=== PATIENT | female | born 1930 | race Two or more races ===

== ENCOUNTER → 2017-06-16 | Outpatient (CLI) | payer OTHER | END | disposition home or self-care (01) | LOC: US 09:00 | PROC: B54DZZZ Ultrasonography of Bilateral Lower Extremity Veins (ICD-10-PCS; principal; 2017-06-16) | DX: M79.89 Other specified soft tissue disorders (principal) ==

== ENCOUNTER 2018-10-15 13:52 | Inpatient (IN) | payer OTHER ==
[~2018-10-15] VITALS: Ht 160 cm; Wt 66.5 kg
[2018-10-15 14:00] VITALS: Ht 160 cm; Wt 66.5 kg
[2018-10-15 15:05] LABS: BASOPHIL % 1.3 % (0-2); PLATELET COUNT 230 x10^3mcL (130-400); RED CELL DISTRIBUTION WIDTH 14.4 % (11.5-14.5)
[2018-10-15 15:16] LABS: CALCIUM 9.4 mg/dL (8.5-10.1); CARBON DIOXIDE 25.3 mmol/L (21-32); CHLORIDE SERUM 98 mmol/L (98-107); CREATININE SERUM 1.6 mg/dL (0.6-1.0); GLUCOSE SERUM 317 mg/dL (74-106); POTASSIUM SERUM 3.8 mmol/L (3.5-5.1); SODIUM SERUM 133 mmol/L (136-145)
[2018-10-15 15:27] LABS: ALKALINE PHOSPHATASE 86 U/L (46-116); ALT/SGPT 46 U/L (14-59); AMYLASE 81 U/L (25-115); AST/SGOT 38 U/L (15-37); BILIRUBIN TOTAL 0.4 mg/dL (0.20-1.00); CHOLESTEROL 194 mg/dL (<200); HDL CHOLESTEROL 38 mg/dL (40-60); LIPASE 235 IU/L (73-393); MAGNESIUM 1.8 mg/dL (1.8-2.4); T4(THYROXINE) 10.8 ug/dL (4.7-13.3); TOTAL PROTEIN, SERUM 7.3 g/dL (6.4-8.2)
[2018-10-15] MEDS ORDERED: LEVOTHYROXIN0.025 M2 PO (15:27)
[2018-10-15] MEDS ORDERED: TOPROL XL100 MG PO (15:27)
[2018-10-15] MEDS ORDERED: GLIPIZIDE10 M2 PO (15:27)
[2018-10-15] MEDS ORDERED: CLOPIDOGREL75 M1 PO (15:27)
[2018-10-15] MEDS ORDERED: LOSARTAN POTASS50 M1 PO (15:28)
[2018-10-15] MEDS ORDERED: ISOSORBIDE MONO60 MG PO (15:28)
[2018-10-15] MEDS ORDERED: SIMVASTATIN20 M1 PO (15:28)
[2018-10-15] MEDS ORDERED: TRADJENTA5 M1 PO ×2 (15:29→21:55)
[2018-10-15] MEDS ORDERED: CHLORTHALIDONE25 MG PO ×2 (15:29→22:02)
[2018-10-15 15:32] LABS: microscopic required? NO
[2018-10-15 15:45] LABS: UA SPECIFIC GRAVITY <=1.005 (1.005-1.035); urine erythrocyte NEGATIVE (NEGATIVE)
[2018-10-15 15:53] LABS: AMPHETAMINE QUAL UR NONE DETECTED (See below)
[2018-10-15 16:39] LABS: FREE T4 1.63 ng/dL (0.76-1.46); FREE THYROXINE INDEX 4.2 ug/dL (1.4-4.5); T3 TOTAL 1.02 ng/mL; T4(THYROXINE) 10.8 ug/dL (4.7-13.3)
[2018-10-15 16:41] VITALS: BP 78/39
[2018-10-15 17:01] LABS: CHOLESTEROL/HDL RATIO 4.5
[2018-10-15 20:10] VITALS: BP 102/62
[2018-10-15 21:43] LABS: CALCIUM 8.7 mg/dL (8.5-10.1); CARBON DIOXIDE 26.4 mmol/L (21-32); CHLORIDE SERUM 101 mmol/L (98-107); CREATININE SERUM 1.6 mg/dL (0.6-1.0); GLUCOSE SERUM 275 mg/dL (74-106); POTASSIUM SERUM 4.3 mmol/L (3.5-5.1); SODIUM SERUM 134 mmol/L (136-145)
[2018-10-15] MEDS ORDERED: GLUCOTROL10 MG PO (21:53)
[2018-10-15 23:42] VITALS: BP 110/62
[2018-10-16] VITALS (7 sets, daily range): BP systolic 125–170; BP diastolic 75–101
[2018-10-16 05:38] LABS: BASOPHIL % 0.4 % (0-2); PLATELET COUNT 210 x10^3mcL (130-400); RED CELL DISTRIBUTION WIDTH 14.3 % (11.5-14.5)
[2018-10-16 05:52] LABS: CALCIUM 8.8 mg/dL (8.5-10.1); CARBON DIOXIDE 22.7 mmol/L (21-32); CHLORIDE SERUM 106 mmol/L (98-107); CREATININE SERUM 1.5 mg/dL (0.6-1.0); GLUCOSE SERUM 207 mg/dL (74-106); MAGNESIUM 1.9 mg/dL (1.8-2.4); PHOSPHOROUS 2.6 mg/dL (2.5-4.9); POTASSIUM SERUM 4.7 mmol/L (3.5-5.1); SODIUM SERUM 137 mmol/L (136-145)
[2018-10-17 05:40] VITALS: BP 143/69
[2018-10-17 07:46] LABS: CALCIUM 9.1 mg/dL (8.5-10.1); CARBON DIOXIDE 25.6 mmol/L (21-32); CHLORIDE SERUM 101 mmol/L (98-107); CREATININE SERUM 1.2 mg/dL (0.6-1.0); GLUCOSE SERUM 212 mg/dL (74-106); MAGNESIUM 1.9 mg/dL (1.8-2.4); PHOSPHOROUS 2.8 mg/dL (2.5-4.9); POTASSIUM SERUM 4.2 mmol/L (3.5-5.1); SODIUM SERUM 137 mmol/L (136-145)
[2018-10-17 08:17] LABS: BASOPHIL % 0.3 % (0-2); PLATELET COUNT 237 x10^3mcL (130-400); RED CELL DISTRIBUTION WIDTH 14.5 % (11.5-14.5)
[2018-10-17 08:47] VITALS: BP 130/77
[2018-10-17 12:53] VITALS: BP 151/89
[2018-10-17 16:45] VITALS: BP 167/92
[2018-10-17 19:00] VITALS: BP 170/107
[2018-10-17 20:40] VITALS: BP 147/82
[2018-10-18 04:23] VITALS: BP 121/83
[2018-10-18 09:36] VITALS: BP 108/62
[2018-10-18 11:57] VITALS: BP 145/75
[2018-10-18] MEDS ORDERED: TOPROL XL50 MG PO (14:59)
[2018-10-18 16:20] VITALS: BP 145/75
== END 2018-10-18 17:20 | disposition home or self-care (01) | DRG 308 ==
LOC: ED 13:52 → DU 15:43 → IC 15:43 → DU 16:26 → IC 17:37 → DU 10-16 17:15
PROVIDERS: Emergency Medicine; Family Medicine; Internal Medicine
DX: I44.1 Atrioventricular block, second degree (principal); N17.0 Acute kidney failure with tubular necrosis; E44.0 Moderate protein-calorie malnutrition; E87.1 Hypo-osmolality and hyponatremia; I95.89 Other hypotension; I48.0 Paroxysmal atrial fibrillation; E11.65 Type 2 diabetes mellitus with hyperglycemia; E11.22 Type 2 diabetes mellitus with diabetic chronic kidney disease; I12.9 Hypertensive chronic kidney disease with stage 1 through stage 4 chronic kidney disease, or unspecified chronic kidney disease; N18.3 Chronic kidney disease, stage 3 (moderate); I25.10 Atherosclerotic heart disease of native coronary artery without angina pectoris; E78.00 Pure hypercholesterolemia, unspecified; E78.5 Hyperlipidemia, unspecified; I25.2 Old myocardial infarction; Z68.29 Body mass index [BMI] 29.0-29.9, adult; Z79.84 Long term (current) use of oral hypoglycemic drugs; Z95.5 Presence of coronary angioplasty implant and graft
CPT/HCPCS: 82962; 83880; 84439; 87804; A9500; J1815; J2785; Q0092; Q0163